=== PATIENT | female | born 2000 | race Asian ===

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

== ENCOUNTER → 2020-08-06 13:10 | Outpatient (CLI) | payer OTHER, SELFPAY ==
--- NOTE | 2020-08-06 13:12 | DI.US.S_ITS ---
LIMITED ULTRASOUND OF RIGHT BREAST AND AXILLA: 08/06/2020 CLINICAL: Palpable right breast lump. Baseline ultrasound. No prior exams were available for comparison. Color flow and real-time ultrasound of the right breast 11 o'clock, and axilla regions were performed. Osorio scale images of the real-time examination were reviewed. Patient reports 2 adjacent palpable abnormalities. There is a 2.3 cm x 1.8 cm x 1 cm oval mass with a circumscribed margin in the right breast at 11 o'clock posterior depth 6 cm from the nipple. This oval mass is hypoechoic with a well-defined boundary. This correlates as palpated. Color flow imaging demonstrates that there is an adjacent vascularity. There also is a 1 cm x 0.7 cm x 0.7 cm oval mass with a circumscribed margin in the right breast at 11 o'clock posterior depth 6 cm from the nipple. This oval mass is hypoechoic with a well-defined boundary. This correlates the the palpated region. Color flow imaging demonstrates that there is an adjacent vascularity. Additionally, there is a 2.8 cm x 2.5 cm x 0.8 cm oval mass with a circumscribed margin in the right breast at 12 o'clock middle depth 3 cm from the nipple. This oval mass is hypoechoic with a well-defined boundary. This correlates as palpated. Color flow imaging demonstrates that there is vascularity present. Small right axillary lymph nodes with borderline uniform cortical thickness. IMPRESSION: PROBABLY BENIGN 1) The 2.3 cm mass in the right breast at 11 o'clock 6 cm from the nipple most likely is a fibroadenoma and is probably benign. 2) The 1 cm mass in the right breast at 11 o'clock posterior depth most likely is a fibroadenoma and is probably benign. 3) The 2.8 cm mass in the right breast at 12 o'clock middle depth most likely is a fibroadenoma and is probably benign. 4) Small right axillary lymph nodes with borderline uniform cortical thickness are probably benign. A follow-up ultrasound in 6 months is recommended to demonstrate stability of these palpable abnormalities. Exam findings were conveyed to the patient by the rehab aide. Findings subsequently discussed with the patient over the phone. This exam was interpreted at Station ID: [id number]. Electronically Signed By: Shai Levin M.D. slc/:08/06/2020 14:56:04 letter sent: Followup Recommended Ultrasound BI-RADS: 3 Probably benign
== END ==
PROVIDERS: PCP Family Medicine; Referring Provider Family Medicine; Visit Provider Family Medicine
DX: N63.11 Unspecified lump in the right breast, upper outer quadrant (principal); N63.15 Unspecified lump in the right breast, overlapping quadrants
CPT/HCPCS: 76642

== ENCOUNTER → 2021-01-31 14:48 | Outpatient (CLI) | payer OTHER, SELFPAY ==
--- NOTE | 2021-01-31 14:50 | DI.US.S_ITS ---
ULTRASOUND OF RIGHT BREAST: 01/31/2021 CLINICAL: Patient returns today to evaluate focal asymmetries in the right breast. Comparison is made to exam dated: 08/06/2020 [facility]. Doppler ultrasound of the right breast was performed. Osorio scale images of the real-time examination were reviewed. There is a benign 2.5 cm x 1.9 cm x 1.2 cm oval fibroadenoma with a circumscribed margin in the right breast at 11 o'clock posterior depth. There also is a benign 1.8 cm x 0.7 cm x 0.7 cm oval fibroadenoma with a circumscribed margin in the right breast at 12 o'clock posterior depth. Additionally, there is a benign 2.9 cm x 2.6 cm x 0.9 cm oval fibroadenoma with a circumscribed margin in the right breast at 12 o'clock posterior depth 3 cm from the nipple. IMPRESSION: BENIGN There is no sonographic evidence of malignancy. The 2.5 cm x 1.9 cm x 1.2 cm oval fibroadenoma in the right breast at 11 o'clock posterior depth is benign. The 1.8 cm x 0.7 cm x 0.7 cm oval fibroadenoma in the right breast at 12 o'clock posterior depth is benign. The 2.9 cm x 2.6 cm x 0.9 cm oval fibroadenoma in the right breast at 12 o'clock posterior depth is benign. Follow-up with ACR/ACS guidelines. This exam was interpreted at Station ID: [id number]. Electronically Signed By: Tc Alvarez acr/:01/31/2021 16:35:45 letter sent: Clinical Evaluation Ultrasound BI-RADS: 2 Benign
== END ==
PROVIDERS: PCP Family Medicine; Referring Provider Family Medicine; Visit Provider Family Medicine
DX: D24.1 Benign neoplasm of right breast (principal)
CPT/HCPCS: 76642

== ENCOUNTER 2021-06-18 19:07 | Inpatient (IN) | payer OTHER, SELFPAY ==
[2021-06-18] VITALS (7 sets, daily range): BP systolic 100–119; BP diastolic 58–68; PULSE 62–75; RESP 16; TEMP 36.6; O2SAT 97–100; BMI 19.1
--- NOTE | 2021-06-18 19:23 | DI.CT.S_ITS ---
PROCEDURE: CT HEAD/BRAIN WO CON INDICATIONS: subdural 1 week ago TECHNIQUE: Noncontrast 4.5 mm thick angled axial sections acquired from the foramen magnum to the vertex, with coronal and sagittal reformats. For radiation dose reduction, the following was used: automated exposure control, adjustment of mA and/or kV according to patient size. COMPARISON: None. FINDINGS: Image quality: Excellent. CSF spaces: Basal cisterns are patent. No extra-axial fluid collections. Ventricles are normal in size and shape. Brain: No midline shift. 1.9 x 1.3 x 1.1 centimeter subacute parenchymal hematoma noted in the anterior-medial right frontal lobe. Edema is noted in the right frontal lobe adjacent to the parenchymal bleed. Trace subdural hemorrhage tracking along the anterior falx.. Osorio-white matter interface is normal. Skull and face: Calvarium and visualized facial bones are intact, without suspicious lesions. Sinuses: Visualized sinuses and mastoids are clear. IMPRESSION: Subacute right frontal lobe parenchymal hemorrhage with trace parafalcine subdural hematoma. Dictated by: Kim Hurt MD, PhD on 06/18/2021 at 19:47 Approved by: Kim Hurt MD, PhD on 06/18/2021 at 19:51
[2021-06-18] MEDS: SODIUM CHLORIDE 0.9% 1,000 ML 1000 ML IV (19:30)
[2021-06-18] MEDS: ONDANSETRON 4 MG/2 ML INJ IV (19:30)
--- NOTE | 2021-06-18 19:39 | PC.NURSE ---
Addendum entered by Melva Briceño R.N. 06/18/21 19:45: Also reports some dizziness with ambulation. Original Note: Patient reports she woke up with headache, nausea, and has vomited 3 times today. Pt states that headache improves after vomiting but does return. Tried ibuprofen but did help with headache. Reports blurry vision that is worse when she does not have glasses on. During visual field check, appreciated slight nystagmus, notified MD immediately. Pt has another day and a half of keppra to take.
[2021-06-18 19:41] LABS: Add Manual Diff / Slide Review NO; Basophils Absolute Auto 0 /uL (0-100); Basophils Percent Auto 0.4 % (0-2); Eosinophils Absolute Auto 200 /uL (0-450); Eosinophils Percent Auto 2.5 % (2-4); Hematocrit 36.6 % (36-46); Hemoglobin 11.9 g/dL (12.0-16.0); Lymphocytes Absolute Auto 1500 /uL (1100-4500); Lymphocytes Percent Auto 14.9 % (25-40); Mean Corpuscular HGB Conc 32.5 % (30-36); Mean Corpuscular Hemoglobin 23.2 PG (26-34); Mean Corpuscular Volume 71.4 fL (80-100); Monocytes Absolute Auto 800 /uL (0-900); Monocytes Percent Auto 8.3 % (3-14); Neutrophils Absolute Auto 7300 /uL (1500-7000); Neutrophils Percent Auto 73.9 % (50-75); Platelet Count 353 X10^3/uL (150-400); Red Blood Cell Count 5.12 X10^6/uL (4.0-5.2); Red Cell Distribution Width 14.1 % (11.6-14.8); White Blood Cell Count 9.9 X10^3/uL (4.5-11.0)
[2021-06-18 19:47] LABS: INR 1.1 (0.9-1.3); Prothrombin Time 12.9 SECONDS (10.1-12.7)
--- NOTE | 2021-06-18 19:49 | ED.HEATRA ---
HPI - Head Injury General Chief complaint: Head Injury Stated complaint: Brain Injury, Headache, Vomiting Time Seen by Provider: 06/18/21 19:23 Source: patient and family Mode of arrival: Ambulatory Limitations: no limitations History of Present Illness HPI Narrative: This is a 21-year-old female who comes to the emergency department with complaint of headache and 3 episodes of nausea in the setting of 1 week ago having a syncopal episode or ground level fall. Patient states she had been out with friends and had had a alcohol. She was found to have the following day a subdural as well as intraparenchymal bleed. Patient was observed had repeat head CTs and was ultimately discharged home on Keppra 500 mg b.i.d. as well as Robaxin. Patient states her headache has been slowly improving over the week but was a little bit worse this morning she has been sleeping with her head elevated overnight. She had 3 episodes of vomiting which is atypical. She was not having any vomiting before she left the hospital. She denies any vision changes. She does note if she takes her glasses off it makes it significantly worse. Patient denies any numbness, tingling or weakness. She has been able to ambulate normally. She denies any chest pain or shortness of breath. She has not had any diarrhea or urinary symptoms otherwise. Patient is an otherwise healthy female who does not normally take daily medications. Patient does not have any known medication allergies. She has been taking ibuprofen occasionally for pain but not regularly. Related Data Home Medications Medication Instructions Recorded Confirmed levetiracetam 500 mg tablet 500 mg PO BID 06/14/21 06/14/21 (Keppra) Previous Rx's Medication Instructions Recorded diphenhydramine HCl 25 mg tablet 50 mg PO Q6HP PRN #30 tab 07/17/17 (Benadryl Allergy) epinephrine 0.3 mg/0.3 mL 0.3 mg IM PRN #2 each 09/23/19 injection, auto-injector clobetasol 0.05 % topical ointment 1 applic TOP BID #30 gram 06/14/21 Allergies Allergy/AdvReac Type Severity Reaction Status Date / Time peanut [PEANUT] Allergy Intermediate HIVES Verified 06/18/21 19:57 kiwi Allergy Verified 06/18/21 19:57 EGGS Allergy Intermediate HIVES Uncoded 06/14/21 11:22 GENERIC: NKDA - NO KNOWN Allergy Unknown Uncoded 06/14/21 11:22 DRUG ALLERGIES Review of Systems Review of Systems ROS Unobtainable: All systems reviewed & are unremarkable except as noted in HPI and below Patient History Social History household members: friend(s) Smoking Status: Never smoker alcohol intake: current Smoking Status: Never smoker Substance Use Type: does not use Exam Narrative Exam Narrative: GEN: well nourished, well appearing female, alert and oriented x 3, patient appears to be in mild distress. HEENT: Atraumatic, pupils are equal round reactive to light, extraocular movements are intact, nares are clear, TMs are clear with no fluid, there is no conjunctival pallor. Throat is clear without any exudates, erythema, tonsillar enlargement or uvular deviation, no facial droop. HEART: Regular rate and rhythm without murmur, clicks, rubs. Pulses are equal in upper extremities LUNGS:Lungs clear to auscultation, no wheezes, rales, crackles, chest moves symmetrically ABD:bowel sounds normal, soft, non-tender, no guarding, rebound, rigidity, no masses noted, no hepatosplenomegaly :No CVA tenderness MSCL: Non-tender, no muscle atrophy, muscles strength 5/5 upper and lower extremities, full range of motion, normal gait NEURO:CN 2-12 intact, sensation normal, reflexes 2/4 upper and lower extremities. finger nose finger test normal, heel dial test normal. Normal speech. Initial Vital Signs Initial Vital Signs: Vital Signs Temperature 97.8 F 06/18/21 19:15 Pulse Rate 75 06/18/21 19:15 Respiratory Rate 16 06/18/21 19:15 Blood Pressure 119/68 06/18/21 19:15 Pulse Oximetry 97 06/18/21 19:15 Course Orders Ordered: ED Orders 06/18/21 20:30 Osmolality, Serum Stat 06/18/21 21:37 Osmolality Urine Stat Sodium Urine Random Stat 06/19/21 01:34 Basic Metabolic Panel Stat Sodium Chloride (Normal Saline 0.9%) 1,000 mls @ 125 mls/hr IV CONT WHITNEY Last Admin: 06/19/21 00:28 Dose: 125 mls/hr Documented by: VANESSA Naloxone HCl (Naloxone 0.4 Mg/Ml Vial) 0.2 mg IV Q2MIN PRN PRN Reason: Opiate Reversal Ondansetron HCl (Ondansetron 4 Mg/2 Ml Inj) 4 mg IV Q8HR PRN PRN Reason: Nausea And Vomiting Discontinued Medications Acetaminophen (Acetaminophen 325 Mg Tablet) 975 mg PO NOW ONE Stop: 06/18/21 20:05 Last Admin: 06/18/21 20:08 Dose: 975 mg Documented by: OZ Acetaminophen (Acetaminophen 325 Mg Tablet) 650 mg PO Q6HR PRN PRN Reason: Fever/Mild Pain (1-3) Stop: 06/19/21 00:01 Sodium Chloride (Normal Saline 0.9%) 1,000 mls @ 1,000 mls/hr IV BOLUS ONE Stop: 06/18/21 20:23 Last Infusion: 06/18/21 21:59 Dose: 0 mls/hr Documented by: Admin: 06/18/21 19:30 Dose: 1,000 mls/hr Documented by: PAVANOTERojelio Ondansetron HCl (Ondansetron 4 Mg/2 Ml Inj) 4 mg IV NOW ONE Stop: 06/18/21 19:26 Last Admin: 06/18/21 19:30 Dose: 4 mg Documented by: PAVANOTEM Ondansetron HCl (Ondansetron 4 Mg/2 Ml Inj) 4 mg IV Q4HR PRN PRN Reason: Nausea And Vomiting Consultations Consultation #1: Vi, Neurosurgery, Dr. Portillo. Patient was originally seen by Dr. Fernandez. CT changes are expected and are normal healing. Patient's subarachnoid and parafalcine are improved. She does recommend that we keep the patient overnight for observation and slowly improve her sodium. She recommends avoiding 3% saline and preferably salt tabs and recheck sodium at 6:00 a.m. to make sure it is improving. Patient she states seems unlikely to have a neuro soft check course and check for other medications. Patient does not have to continue Keppra be on her current course. And recommends a repeat CT in 3 weeks. Consultation #2: Dr. Landon covering for Dr. See. Discussed recommendations from Dr. Portillo with neurosurgery. Discussed recommendations to have repeat sodium level in 6 hours. Salt tabs, avoiding 3% saline if not necessary. And to evaluate for other causes besides trauma. We discussed patient can stop her Keppra. And recommended head CT in 3 weeks repeat check. Vital Signs Vital signs: Vital Signs - 8 hr 06/18/21 19:15 06/18/21 19:45 06/18/21 20:00 Temperature 97.8 F Pulse Rate 75 66 67 Respiratory Rate 16 Blood Pressure 119/68 108/65 Pulse Oximetry 97 99 99 MDM - Head Injury Lab Data Result diagrams: 06/18/21 19:28 06/19/21 01:34 Labs: Lab Results 06/18/21 06/18/21 06/18/21 Range/Units 19:28 19:28 19:28 WBC 9.9 (4.5-11.0) X10^3/uL RBC 5.12 (4.0-5.2) X10^6/uL Hgb 11.9 L (12.0-16.0) g/dL Hct 36.6 (36-46) % MCV 71.4 L (80-100) fL MCH 23.2 L (26-34) PG MCHC 32.5 (30-36) % RDW 14.1 (11.6-14.8) % Plt Count 353 (150-400) X10^3/uL Neut % (Auto) 73.9 (50-75) % Lymph % (Auto) 14.9 L (25-40) % Bosque % (Auto) 8.3 (3-14) % Eos % (Auto) 2.5 (2-4) % Baso % (Auto) 0.4 (0-2) % Neut # (Auto) 7300 H (2746-8011) /uL Lymph # (Auto) 1500 (4170-1554) /uL Bosque # (Auto) 800 (0-900) /uL Eos # (Auto) 200 (0-450) /uL Baso # (Auto) 0 (0-100) /uL PT 12.9 H (10.1-12.7) SECONDS INR 1.1 (0.9-1.3) APTT 38 H (26.4-36.2) SECONDS Sodium 121 L (137-145) mmol/L Potassium 3.7 (3.4-5.1) mmol/L Chloride 89 L (98-107) mmol/L Carbon Dioxide 22 (22-32) mmol/L BUN 5 L (7-17) mg/dL Creatinine 0.45 L (0.52-1.04) mg/dL Estimated GFR > 60.0 (>60) mL/min BUN/Creatinine Ratio 11.1 (6-22) Glucose 92 (70-100) mg/dL Calcium 9.3 (8.4-10.2) mg/dL Total Bilirubin 0.7 (0.2-1.3) mg/dL AST 25 (14-36) IU/L ALT 15 (<35) IU/L Alkaline Phosphatase 56 (38-126) U/L Total Protein 7.6 (6.3-8.2) g/dL Albumin 4.5 (3.5-5.0) g/dL Globulin 3.1 (1.7-4.1) g/dL Albumin/Globulin Ratio 1.5 (1.0-2.8) Lipase 66 (23-300) U/L TSH (0.47-4.68) uIU/mL Random Cortisol ug/dL 06/18/21 06/18/21 Range/Units 19:28 19:28 WBC (4.5-11.0) X10^3/uL RBC (4.0-5.2) X10^6/uL Hgb (12.0-16.0) g/dL Hct (36-46) % MCV (80-100) fL MCH (26-34) PG MCHC (30-36) % RDW (11.6-14.8) % Plt Count (150-400) X10^3/uL Neut % (Auto) (50-75) % Lymph % (Auto) (25-40) % Bosque % (Auto) (3-14) % Eos % (Auto) (2-4) % Baso % (Auto) (0-2) % Neut # (Auto) (2949-3706) /uL Lymph # (Auto) (3889-5206) /uL Bosque # (Auto) (0-900) /uL Eos # (Auto) (0-450) /uL Baso # (Auto) (0-100) /uL PT (10.1-12.7) SECONDS INR (0.9-1.3) APTT (26.4-36.2) SECONDS Sodium (137-145) mmol/L Potassium (3.4-5.1) mmol/L Chloride (98-107) mmol/L Carbon Dioxide (22-32) mmol/L BUN (7-17) mg/dL Creatinine (0.52-1.04) mg/dL Estimated GFR (>60) mL/min BUN/Creatinine Ratio (6-22) Glucose (70-100) mg/dL Calcium (8.4-10.2) mg/dL Total Bilirubin (0.2-1.3) mg/dL AST (14-36) IU/L ALT (<35) IU/L Alkaline Phosphatase (38-126) U/L Total Protein (6.3-8.2) g/dL Albumin (3.5-5.0) g/dL Globulin (1.7-4.1) g/dL Albumin/Globulin Ratio (1.0-2.8) Lipase (23-300) U/L TSH 1.27 (0.47-4.68) uIU/mL Random Cortisol 11.9 ug/dL Point of Care Testing Test Results Negative Imaging Data CT scan - head: Radiologist's Impression: [address] [id number] Scan ReportSigned Patient: Adelaida Duke R#: [id number]: 2000Acct:[id number]/Sex: 21 / FDate of Service: 06/18/21Loc: EDAccession Number: [id number] Procedure: CT head/brain wo con Ordering Provider: Jacki Sharif D.O. PROCEDURE: CT HEAD/BRAIN WO CON INDICATIONS: subdural 1 week ago TECHNIQUE: Noncontrast 4.5 mm thick angled axial sections acquired from the foramen magnum to the vertex, with coronal and sagittal reformats. For radiation dose reduction, the following was used: automated exposure control, adjustment of mA and/or kV according to patient size. COMPARISON: None. FINDINGS: Image quality: Excellent. CSF spaces: Basal cisterns are patent. No extra-axial fluid collections. Ventricles are normal in size and shape. Brain: No midline shift. 1.9 x 1.3 x 1.1 centimeter subacute parenchymal hematoma noted in the anterior-medial right frontal lobe. Edema is noted in the right frontal lobe adjacent to the parenchymal bleed. Trace subdural hemorrhage tracking along the anterior falx.. Osorio-white matter interface is normal. Skull and face: Calvarium and visualized facial bones are intact, without suspicious lesions. Sinuses: Visualized sinuses and mastoids are clear. IMPRESSION: Subacute right frontal lobe parenchymal hemorrhage with trace parafalcine subdural hematoma. Dictated by: Kim Hurt MD, PhD on 06/18/2021 at 19:47 Approved by: Kim Hurt MD, PhD on 06/18/2021 at 19:51 [facility] Narrative Medical decision making narrative: 21-year-old female who comes to the emergency department with complaint of increasing headache and vomiting x3 over the last 24 hours. Approximately a week ago patient had either a fall or syncopal episode while intoxicated resulted in a subarachnoid, subdural as well as intraparenchymal bleed. Her images were reviewed by neurosurgery at [place] where she was hospitalized and her bleed is resolving on appropriate time frame in scale. They do recommend repeat CT at 3 weeks. Discussed that patient was hyponatremic which is likely the cause of her headache and nausea and vomiting. They felt less likely to be SIADH secondary to trauma, it was noted that patient is on Keppra which she can stop per neurosurgery and this does have a side effect of hyponatremia. Patient has also been taking Robaxin which does not have a known side effect hyponatremia. Surgery did recommend working up patient for other potential causes. Does not require transfer but does recommend close observation, repeat sodium at 6 hours and very slow increase without 3% saline unless patient becomes more symptomatic and salt tablets at this time. Discharge Plan Departure Patient Disposition: Admitted As Inpatient Clinical Impression: Acute hyponatremia, Intraparenchymal hematoma of brain due to trauma Admit Date/Time: 06/18/21 21:23 Admit Provider: Johnnie Ladnon
[2021-06-18 19:50] LABS: PTT Partial Thromboplastin Tim 38 SECONDS (26.4-36.2)
[2021-06-18 19:52] LABS: Alanine Aminotransferase 15 IU/L (<35); Albumin 4.5 g/dL (3.5-5.0); Albumin Globulin Ratio 1.5 (1.0-2.8); Alkaline Phosphatase 56 U/L (38-126); Aspartate Aminotransferase 25 IU/L (14-36); BUN Creatinine Ratio 11.1 (6-22); Bilirubin Total 0.7 mg/dL (0.2-1.3); Blood Urea Nitrogen 5 mg/dL (7-17); Calcium 9.3 mg/dL (8.4-10.2); Carbon Dioxide 22 mmol/L (22-32); Chloride 89 mmol/L (98-107); Estimated Glomerular Filt Rate > 60.0 mL/min (>60); Globulin 3.1 g/dL (1.7-4.1); Glucose 92 mg/dL (70-100); HEMOLYSIS < 15 (0-50); Lipase 66 U/L (23-300); Potassium 3.7 mmol/L (3.4-5.1); Sodium 121 mmol/L (137-145); Total Protein 7.6 g/dL (6.3-8.2)
[2021-06-18] MEDS: ACETAMINOPHEN 325 MG TABLET 975 MG PO (20:08)
[2021-06-18 22:00] LABS: Sodium Urine Random 160 mmol/L (30-90)
[2021-06-18 22:02] LABS: Cortisol Random 11.9 ug/dL; Thyroid Stimulating Hormone 1.27 uIU/mL (0.47-4.68)
[2021-06-18 22:45] LABS: COVID19 - ADMIT (NP swab/PCR) Negative (Negative)
[2021-06-19] VITALS (8 sets, daily range): BP systolic 97–111; BP diastolic 53–68; PULSE 61–72; RESP 14–16; TEMP 36.2–37.3; O2SAT 99; BMI 19.1
[2021-06-19] MEDS: SODIUM CHLORIDE 0.9% 1,000 ML 125 ML IV ×3 (00:28→15:37)
--- NOTE | 2021-06-19 00:48 | PC.NURSE ---
0030- Patient admitted to room 227 observation. Patient is A/O x4. C/O mild headache, no other neuro deficits or symptoms at this time. Patient mother at bedside. Patient oriented to room, call light and instructed to call for assist to the bathroom. Bed alarm engaged. Low grade temp noted. IV fluids infusing per order. Will monitor.
[2021-06-19 01:57] LABS: BUN Creatinine Ratio 12.8 (6-22); Blood Urea Nitrogen 5 mg/dL (7-17); Calcium 8.2 mg/dL (8.4-10.2); Carbon Dioxide 22 mmol/L (22-32); Chloride 93 mmol/L (98-107); Estimated Glomerular Filt Rate > 60.0 mL/min (>60); Glucose 91 mg/dL (70-100); HEMOLYSIS < 15 (0-50); Potassium 4.3 mmol/L (3.4-5.1)
[2021-06-19 02:03] LABS: Sodium 119 mmol/L (137-145)
[2021-06-19 08:07] LABS: BUN Creatinine Ratio 11.4 (6-22); Blood Urea Nitrogen 5 mg/dL (7-17); Calcium 8.1 mg/dL (8.4-10.2); Carbon Dioxide 21 mmol/L (22-32); Chloride 95 mmol/L (98-107); Estimated Glomerular Filt Rate > 60.0 mL/min (>60); Glucose 84 mg/dL (70-100); HEMOLYSIS < 15 (0-50); Sodium 121 mmol/L (137-145)
--- NOTE | 2021-06-19 09:17 | PC.NURSE ---
Addendum entered by Bisi Alexander R.N. 06/19/21 14:32: Will recheck next labs @ 1700, and update Dr Puente. NS remains @ 125. Fluid restriction started with lunch, Pt verbalizes understanding and cooperative with requests. I/O measured. Continues with mild BERG, rates 2-4/10 APAP given with good effect. Resting comfortably at present. Lights low and noise reduced with closed doors per request. Call light with in reach. Original Note: Am shift Pt is A/o x4, denies BERG this am, no c/o nausea, nibbling at toast for breakfast. NS infusing @ 125mls/hr. Pt reports that ice to neck has improved discomfort and vision seems fine this am. PERRLA, no neurological deficits noted on exam. Pt is eager for lab results and potential d/c home when able. Update to mother Poly, at bedside about POC. No concerns this AM. Await Dr Puente for updated POC.
--- NOTE | 2021-06-19 10:53 | P.HP_ITS ---
History of Present Illness History of Present Illness Date Patient Seen: 06/19/21 Time Patient Seen: 10:53 Date of Onset of Symptoms: 06/19/21 Chief complaint: Brain Injury, Headache, Vomiting Narrative: Patient is a 21-year-old female who was brought to the emergency room by mother for increasing headache vomiting. Patient had approximately 1 week ago been intoxicated fell over hitting her head getting a subarachnoid and sub dural as well as intraparenchymal bleed. She was hospitalized at [facility] and bleed was improving. She had been sent home and doing relatively well. Headache was slowly improving. Nausea was improving. Until yesterday when she woke up feeling with increasing headache progressive nausea and vomiting. Un able to keep anything down. Was not taking fluid. She does feel like she was increasingly drinking more fluid over the week and having more urination. She denies any fevers or chills. Any numbness or tingling. Any visual changes. Headache was quite severe. Due to increasing headache been unable to keep anything down she was brought and no other significant change. Patient has been feeling well. Patient was found to hyponatremia. Is been no other change. 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 Apparently not related to head trauma about more related to Past medical history negative. Past surgical history negative. Family history unremarkable. Patient History Family & Social History Social History: household members friend(s) Prior Living Arrangements Apartment/Condo Safety & Behavioral: Feels Safe in Current Yes Environment Been Physically Hurt or No Threatened By a Person Suicidal Ideation Description None Suicide Plan Description No Plan Tobacco & Substance use: Smoking Status Never smoker alcohol intake current alcohol intake frequency holiday/special occasion Substance Use Type does not use Meds Home Medications and Allergies Home Medications Medication Instructions Recorded Confirmed Type diphenhydramine HCl 25 mg tablet 50 mg PO Q6HP PRN #30 tab 07/17/17 06/19/21 Rx (Benadryl Allergy) epinephrine 0.3 mg/0.3 mL 0.3 mg IM PRN #2 each 09/23/19 06/19/21 Rx injection, auto-injector clobetasol 0.05 % topical ointment 1 applic TOP BID #30 gram 06/14/21 06/19/21 Rx levetiracetam 500 mg tablet 500 mg PO BID 06/14/21 06/19/21 History (antoinette) Allergies Allergy/AdvReac Type Severity Reaction Status Date / Time peanut [PEANUT] Allergy Intermediate HIVES Verified 06/18/21 19:57 kiwi Allergy Verified 06/18/21 19:57 EGGS Allergy Intermediate HIVES Uncoded 06/14/21 11:22 GENERIC: NKDA - NO KNOWN Allergy Unknown Uncoded 06/14/21 11:22 DRUG ALLERGIES Exam Vital Signs (past 8 hours): - 06/19/21 07:00 06/19/21 08:00 Temperature 98.3 F Pulse Rate 61 Respiratory Rate 14 Blood Pressure 99/57 L Pulse Oximetry 99 99 Oxygen Delivery Method Room Air Oxygen Flow Rate 0 Narrative Exam Narrative: Alert young female in no acute distress. Relaxed in lying comfortably in bed. HEENT exam unremarkable mucous membranes appear to be mostly moist. Eyes have normal range of motion. No nystagmus. Neck supple without adenopathy lungs are clear heart regular rate and rhythm abdomen is soft positive bowel sounds nontender extremities without cyanosis clubbing edema neurologic exam shows cr anial nerves 2-12 are intact motor is 5/5 reflexes are 2+ and symmetric no clonus finger to nose heel Objective Labs Result Diagrams: 06/18/21 19:28 06/19/21 07:45 Labs: Laboratory Results - last 24 hr 06/18/21 06/18/21 06/18/21 19:28 19:28 19:28 WBC 9.9 RBC 5.12 Hgb 11.9 L Hct 36.6 MCV 71.4 L MCH 23.2 L MCHC 32.5 RDW 14.1 Plt Count 353 Neut % (Auto) 73.9 Lymph % (Auto) 14.9 L [place] % (Auto) 8.3 Eos % (Auto) 2.5 Baso % (Auto) 0.4 Neut # (Auto) 7300 H Lymph # (Auto) 1500 [place] # (Auto) 800 Eos # (Auto) 200 Baso # (Auto) 0 PT 12.9 H INR 1.1 APTT 38 H Sodium 121 L Potassium 3.7 Chloride 89 L Carbon Dioxide 22 BUN 5 L Creatinine 0.45 L Estimated GFR > 60.0 BUN/Creatinine Ratio 11.1 Glucose 92 Calcium 9.3 Total Bilirubin 0.7 AST 25 ALT 15 Alkaline Phosphatase 56 Total Protein 7.6 Albumin 4.5 Globulin 3.1 Albumin/Globulin Ratio 1.5 Lipase 66 TSH Random Cortisol Ur Random Sodium Nasal Screen MRSA (PCR) SARS-CoV-2 (PCR) 06/18/21 06/18/21 06/18/21 19:28 19:28 21:37 WBC RBC Hgb Hct MCV MCH MCHC RDW Plt Count Neut % (Auto) Lymph % (Auto) [place] % (Auto) Eos % (Auto) Baso % (Auto) Neut # (Auto) Lymph # (Auto) [place] # (Auto) Eos # (Auto) Baso # (Auto) PT INR APTT Sodium Potassium Chloride Carbon Dioxide BUN Creatinine Estimated GFR BUN/Creatinine Ratio Glucose Calcium Total Bilirubin AST ALT Alkaline Phosphatase Total Protein Albumin Globulin Albumin/Globulin Ratio Lipase TSH 1.27 Random Cortisol 11.9 Ur Random Sodium 160 H Nasal Screen MRSA (PCR) SARS-CoV-2 (PCR) 06/18/21 06/19/21 06/19/21 21:52 00:00 01:34 WBC RBC Hgb Hct MCV MCH MCHC RDW Plt Count Neut % (Auto) Lymph % (Auto) [place] % (Auto) Eos % (Auto) Baso % (Auto) Neut # (Auto) Lymph # (Auto) [place] # (Auto) Eos # (Auto) Baso # (Auto) PT INR APTT Sodium 119 L* Potassium 4.3 Chloride 93 L Carbon Dioxide 22 BUN 5 L Creatinine 0.39 L Estimated GFR > 60.0 BUN/Creatinine Ratio 12.8 Glucose 91 Calcium 8.2 L Total Bilirubin AST ALT Alkaline Phosphatase Total Protein Albumin Globulin Albumin/Globulin Ratio Lipase TSH Random Cortisol Ur Random Sodium Nasal Screen MRSA (PCR) Negative for mrsa SARS-CoV-2 (PCR) Negative 06/19/21 07:45 WBC RBC Hgb Hct MCV MCH MCHC RDW Plt Count Neut % (Auto) Lymph % (Auto) [place] % (Auto) Eos % (Auto) Baso % (Auto) Neut # (Auto) Lymph # (Auto) [place] # (Auto) Eos # (Auto) Baso # (Auto) PT INR APTT Sodium 121 L Potassium 4.0 Chloride 95 L Carbon Dioxide 21 L BUN 5 L Creatinine 0.44 L Estimated GFR > 60.0 BUN/Creatinine Ratio 11.4 Glucose 84 Calcium 8.1 L Total Bilirubin AST ALT Alkaline Phosphatase Total Protein Albumin Globulin Albumin/Globulin Ratio Lipase TSH Random Cortisol Ur Random Sodium Nasal Screen MRSA (PCR) SARS-CoV-2 (PCR) Assessment & Plan Assessment & Plan narrative: Hyponatremia. Probably secondary to Keppra although maybe secondary to head injury. Probably combination. SIADH. Slightly improved least back to baseline. Labs have been sent in emergency room. But probably will be back soon. Given the fact that she his really only come back to where she was with gentle hydration and fluid restriction I believe that we should continue with current therapy for 1 more day. We need slow improvement. Hopefully we will be better tomorrow and we can discharge home. Certainly she is otherwise clinically better. She understands. Mom understands. Questions answered. Will discontinue Keppra. Subarachnoid, subdural hematoma. Improved on CT scan. Neurosurgeon states we can discontinue Keppra. There is no other significant change neurologic status appears normal and at this point we will follow she will need follow-up in [address] scan. Nausea and vomiting. Probably secondary to subarachnoid bleed or hyponatremia or could be the cause of her hyponatremia at least partly. Much improved. Patient is feeling better. Will increase diet and see how she does. Will follow from there. Headache. Much improved today. Clinically improved neuro normal neurologic status. Probably secondary to previous head injury and seems to be back to baseline and improved continue treatment certainly probably made worse by her hyponatremia. DVT prophylaxis will will do SCDs will hold blood thinner due to her head bleed and will follow. Code status full. Disposition. Hopeful be able to discharge tomorrow.
[2021-06-19] MEDS: ACETAMINOPHEN 325 MG TABLET 650 MG PO ×2 (13:39→21:03)
--- NOTE | 2021-06-19 16:16 | CM.DANOTE ---
Patient is a 21 year old female who was admitted on 06/18/21 for Brain injury/headache/vomiting. Pt has [facility] for insurance and her PCP is Dr. Nazia See. EMR was reviewed. Per MD, pt admitted after a fall a few days ago after ETOH use with friends and then ongoing headache with increased N/V and vision disturbances. Pt was found to have a bleed and seems to be healing and improving but pt was hyponatremic and required Bolus for sodium levels. Per MD, pt to have further labs drawn this evening towards likely plan of d/c home tomorrow if stable. SW met briefly bedside with pt and mother and they confirm pt lives in [place] and is active and independent at baseline and denies any hx of needs and no ETOH abuse concerns but just a poor decision with friends. Mother is available for assist at d/c if needed and can provide transport at d/c. Plan: SW to follow tomorrow to confirm safe plan of home with family assist and any further identified needs. KENNEY Sellers
[2021-06-19 17:29] LABS: BUN Creatinine Ratio 18.4 (6-22); Blood Urea Nitrogen 9 mg/dL (7-17); Calcium 8.6 mg/dL (8.4-10.2); Carbon Dioxide 23 mmol/L (22-32); Chloride 100 mmol/L (98-107); Estimated Glomerular Filt Rate > 60.0 mL/min (>60); Glucose 103 mg/dL (70-100); HEMOLYSIS < 15 (0-50); Potassium 4.6 mmol/L (3.4-5.1); Sodium 130 mmol/L (137-145)
--- NOTE | 2021-06-19 18:03 | PC.NURSE ---
Sodium came back at 130. Discussed with Dr. Landon and he said we could stop the NS at this point and will continue to monitor.
[2021-06-20 05:25] LABS: BUN Creatinine Ratio 16.3 (6-22); Blood Urea Nitrogen 8 mg/dL (7-17); Calcium 9.6 mg/dL (8.4-10.2); Carbon Dioxide 24 mmol/L (22-32); Chloride 105 mmol/L (98-107); Estimated Glomerular Filt Rate > 60.0 mL/min (>60); Glucose 95 mg/dL (70-100); HEMOLYSIS < 15 (0-50); Potassium 4.7 mmol/L (3.4-5.1); Sodium 135 mmol/L (137-145)
[2021-06-20 07:00] VITALS: BP 91/53; PULSE 67; RESP 17; TEMP 36.6; O2SAT 98; O2SAT 99
[2021-06-20] MEDS: ACETAMINOPHEN 325 MG TABLET 650 MG PO (08:17)
--- NOTE | 2021-06-20 08:30 | PM.DS.1 ---
History of Present Illness History of Present Illness Date Patient Seen: 06/20/21 Time Patient Seen: 07:50 Chief complaint: Brain Injury, Headache, Vomiting Narrative: Patient is a 21-year-old female who was brought to the emergency room by mother for increasing headache vomiting. Patient had approximately 1 week ago been intoxicated fell over hitting her head getting a subarachnoid and sub dural as well as intraparenchymal bleed. She was hospitalized at [facility] and bleed was improving. She had been sent home and doing relatively well. Headache was slowly improving. Nausea was improving. Until yesterday when she woke up feeling with increasing headache progressive nausea and vomiting. Unable to keep anything down. Was not taking fluid. She does feel like she was increasingly drinking more fluid over the week and having more urination. She denies any fevers or chills. Any numbness or tingling. Any visual changes. Headache was quite severe. Due to increasing headache been unable to keep anything down she was brought and no other significant change. Patient has been feeling well. Patient was found to hyponatremia. Is been no other change. 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 Apparently not related to head trauma about more related to Past medical history negative. Past surgical history negative. Family history unremarkable. Discharge Providers Provider Date of admission: 06/18/21 21:23 Discharge Date: 06/20/21 Primary care physician: Nazia See MD Discharge provider: Nazia See MD Summary Hospital Course Discharge Diagnosis: Hyponatremia Subarachnoid hematoma Subdural hematoma Headache Nausea, Vomiting Hospital Course: The pt presented with nausea, vomiting, and headache in the setting of recent traumatic subarachnoid hematoma and subdural hematoma. She was found to have profound hyponatremia, likely due to Keppra after the injury. After discussion with neurosurgery, her Keppra was held. Her hyponatremia gradually improved with IV fluid hydration and fluid restriction. At the time discharge it was near normal. Her symptoms had all resolved. She will be discharged home with instructions to repeat BMP on 06/22. The pt has f/u with Neurosurgery already on 06/27. She will need a repeat CT of her head in 3 weeks. Exam Vital Signs (past 8 hours): - 06/20/21 07:00 Temperature 97.9 F Pulse Rate 67 Respiratory Rate 17 Blood Pressure 91/53 L Pulse Oximetry 99 Oxygen Delivery Method Room Air Oxygen Flow Rate 0 Narrative Exam Narrative: Gen: NAD, sitting comfortably in bed, appears well CV: RRR, no murmurs Resp: clear to auscultation bilaterally Abd: soft, nontender, nondistended, normoactive bowel sounds Ext: no edema Objective Labs Result Diagrams: 06/18/21 19:28 06/20/21 04:55 Labs: Laboratory Results - last 24 hr 06/19/21 06/20/21 17:10 04:55 Sodium 130 L 135 L Potassium 4.6 4.7 Chloride 100 105 Carbon Dioxide 23 24 BUN 9 8 Creatinine 0.49 L 0.49 L Estimated GFR > 60.0 > 60.0 BUN/Creatinine Ratio 18.4 16.3 Glucose 103 H 95 Calcium 8.6 9.6 PFSH Social History household members: friend(s) Smoking Status: Never smoker alcohol intake: current Discharge Plan Discharge Plan Patient Disposition: Home Provider Discharge Comment: Please have your lab work drawn on Sunday, 06/22. Discharge orders & Medications Prescriptions: Continued epinephrine 0.3 mg/0.3 mL auto-injector 0.3 mg IM PRN Qty: 2 RF: 1 clobetasol 0.05 % ointment 1 applic TOP BID Qty: 30 RF: 2 diphenhydramine HCl [Benadryl Allergy] 25 MG tablet 50 mg PO Q6HP PRNQty: 30 RF: 0 Discontinued levetiracetam [Keppra] 500 mg tablet 500 mg PO BID RF: 0 Follow up/Referrals: Nazia See MD [Primary Care Provider] - 07/06/21 2:15 pm (appt:07/06 @ 2:15 w/dr see please arrive 15 minutes prior to your scheduled appointment time) Diet/Activity/Treatments Diet: Regular Visit Report/Discharge Packet Instructions: DI for Hyponatremia Visit Report Forms: Patient Portal/API, Stroke Signs & Symptoms Discharge Data Primary Care Provider: Nazia See Discharges patient from system. Discharge Date/Time: 06/20/21 10:37
[2021-06-20 09:10] VITALS: O2SAT 99
--- NOTE | 2021-06-20 09:57 | PC.NURSE ---
Addendum entered by Argentina Noel R.N. 06/20/21 10:37: Patient discharged via wheelchair. Original Note: Patient A/O x 3, reports headache 11/21, Tylenol administered. Patient denied change in vision, dizziness, lightheadedness or fatigue. Patient and mother given discharge instructions regarding s/s of worsening condition, lab draw on Sunday and maintaining appointment with neuro. IV removed, patient tolerated.
[2021-06-20 13:36] LABS: Osmolality, Serum 250 mOsmol/kg (275-295)
[2021-06-20 15:48] LABS: Osmolality Urine 417 mOsmol/kg (.)
[2021-06-22 15:13] LABS: Levetiracetam Keppra 4.2 ug/mL (10.0-40.0)
== END 2021-06-20 10:37 | disposition home or self-care (01) | DRG 641 ==
LOC: ED 21:19 → ICU 06-19 11:12 → AC 06-20 11:10 → ICU 06-20 11:10
PROVIDERS: Admitting Provider Family Medicine; Emergency Provider Emergency Medicine; PCP Family Medicine; Referring Provider Emergency Medicine; Visit Provider Family Medicine
DX: E87.1 Hypo-osmolality and hyponatremia (principal); R11.2 Nausea with vomiting, unspecified; R51.9 Headache, unspecified; T42.6X5A Adverse effect of other antiepileptic and sedative-hypnotic drugs, initial encounter; Z20.822 Contact with and (suspected) exposure to COVID-19; S06.5X0D Traumatic subdural hemorrhage without loss of consciousness, subsequent encounter; S06.6X0D Traumatic subarachnoid hemorrhage without loss of consciousness, subsequent encounter
CPT/HCPCS: 36415; 36592; 70450; 80048; 80053; 80177; 81003; 81025; 82533; 83690; 83930; 83935; 84300; 84443; 85025; 85610; 85730; 87635; 87797; 94760; 96361; 96374; 99238; 99284; C9803; J2405

== ENCOUNTER → 2021-06-23 07:19 | Outpatient (ROUT) | payer OTHER, SELFPAY ==
[2021-06-19 00:34] VITALS: BMI 19.1
[2021-06-23 07:32] LABS: BUN Creatinine Ratio 17.6 (6-22); Blood Urea Nitrogen 9 mg/dL (7-17); Calcium 10.1 mg/dL (8.4-10.2); Carbon Dioxide 26 mmol/L (22-32); Chloride 101 mmol/L (98-107); Estimated Glomerular Filt Rate > 60.0 mL/min (>60); Glucose 82 mg/dL (70-100); HEMOLYSIS < 15 (0-50); Potassium 5.2 mmol/L (3.4-5.1); Sodium 136 mmol/L (137-145)
== END ==
PROVIDERS: PCP Family Medicine; Visit Provider Family Medicine
DX: E87.1 Hypo-osmolality and hyponatremia (principal)
CPT/HCPCS: 80048